=== PATIENT | female | born 1985 | race Caucasian/White ===

== ENCOUNTER 2018-10-04 03:40 | Emergency (ER) | payer OTHER ==
[~2018-10-04] VITALS: Ht 157.5 cm; Wt 83.9 kg
[2018-10-04 04:05] VITALS: BP_SYST 125
[2018-10-04 05:36] LABS: BASOPHILS % (AUTO) 0.5 % (0.0-2.0); EOSINOPHILS # (AUTO) 0.1 K/uL (0.0-0.4); EOSINOPHILS % (AUTO) 1.4 % (0.0-4.0); HEMATOCRIT 37.7 % (36-48); LYMPHOCYTES # (AUTO) 1.7 K/uL (1.0-5.5); MEAN CORPUSCULAR HEMOGLOBIN 29 pg (27-31); MEAN CORPUSCULAR HGB CONC 32 % (32-36); MEAN CORPUSCULAR VOLUME 92 fL (79.0-98.0); MONOCYTES # (AUTO) 0.4 K/uL (0.0-1.0); MONOCYTES % (AUTO) 6.7 % (1.7-9.3); NEUTROPHILS # (AUTO) 4.4 K/uL (1.8-7.7); NEUTROPHILS % (AUTO) 65.4 % (40.0-70.0); PLATELET COUNT (AUTO) 261 K/uL (130-430); RED BLOOD CELL COUNT(AUTO) 4.12 MIL/uL (4.2-6.2); RED CELL DISTRIBUTION WIDTH 12.3 % (9.0-15.0); WHITE BLOOD COUNT (AUTO) 6.6 K/uL (4.8-10.8)
[2018-10-04 05:38] LABS: CALCIUM 8.4 mg/dL (8.4-11.0); CREATININE 0.76 mg/dL (0.55-1.30); POTASSIUM 3.4 mmol/L (3.5-5.1)
[2018-10-04 05:42] LABS: PROTHROMBIN TIME 10.1 SECS (9.5-12.5)
[2018-10-04 05:43] LABS: ALBUMIN 3.3 g/dL (3.4-4.8); TOTAL BILIRUBIN 0.5 mg/dL (0.0-1.0)
[2018-10-04 06:04] LABS: BILIRUBIN,URINE NEGATIVE (NEGATIVE); BLOOD, URINE 3+ (NEGATIVE); CLARITY/URINE SL HAZY (CLEAR); COLOR,URINE YELLOW (YELLOW); GLUCOSE,URINE NEGATIVE (NEGATIVE); KETONES,URINE NEGATIVE (NEGATIVE); LEUKOCYTE ESTERASE ,URINE 1+ (NEGATIVE); NITRITE, URINE POSITIVE (NEGATIVE); PROTEIN URINE NEGATIVE (NEGATIVE)
[2018-10-04 06:15] LABS: BACTERIA,URINE MODERATE /HPF (None Seen); MUCUS,URINE 1+ /LPF (None Seen)
[2018-10-04] MEDS ORDERED: cefTRIAXone 1 GM IVPB PREMIX 50 ML IV ONE (06:30)
[2018-10-04] MEDS ORDERED: NACL 0.9% 1,000 ML IV ONE (06:30)
[2018-10-04 08:30] VITALS: BP_SYST 104
== END 2018-10-04 08:26 | disposition home or self-care (01) ==
LOC: SED 03:40
DX: N39.0 Urinary tract infection, site not specified (principal)
CPT/HCPCS: 36415; 76856; 80053; 81000; 81025; 83605; 83690; 85025; 85610; 87040; 87086; 87186; 96365; 99284; J0696; J7030

== ENCOUNTER 2019-07-17 11:25 | Day surgery (SDC) | payer OTHER ==
[2019-07-15 10:03] LABS: HCG,QUAL RESULT NEGATIVE (NEGATIVE)
[~2019-07-17] VITALS: Ht 157.5 cm; Wt 83.9 kg
[~2019-07-17 11:25] MED LIST: CEFAZOLIN 2 GM IVPB PREMIX 50 ML IV ONE
[2019-07-17] MEDS ORDERED: NS 1000 ML IV.SOLN IV ONE (14:00)
[2019-07-17] MEDS ORDERED: BUPIVACAINE /EPINEPHRINE/PF 0.5% 30 ML VIAL INJ ONE (14:00)
[2019-07-17] MEDS ORDERED: PROPOFOL 200MG/ 20ML VIAL (DIPRIVAN) IV ONE (14:00)
[2019-07-17] MEDS ORDERED: ROCURONIUM BROMIDE 10 MG/ML (ZEMURON) IV ONE (14:00)
[2019-07-17] MEDS ORDERED: fentaNYL CITRATE 250 MCG/5 ML AMP IV ONE (14:00)
[2019-07-17] MEDS ORDERED: SUGAMMADEX SODIUM 200 MG/2 ML VIAL IV ONE (14:00)
[2019-07-17] MEDS ORDERED: ONDANSETRON HCL 4 MG/2 ML VIAL IVP ONE (14:00)
[2019-07-17] MEDS ORDERED: DEXAMETHASONE SOD PHOSPHATE 4 MG/ML VIAL IVP ONE (14:00)
[2019-07-17] MEDS ORDERED: SEVOFLURANE 15 MIN GAS INH ONE (14:00)
[2019-07-17] MEDS ORDERED: LR 1,000 ML IV.SOLN IV ONE (14:00)
[2019-07-17] MEDS ORDERED: NS IRRIG SOLN 1000 ML IR ONE (14:00)
[2019-07-17] MEDS ORDERED: MIDAZOLAM HCL 5 MG/5 ML VIAL IVP ONE (14:00)
[2019-07-17] MEDS ORDERED: LR 1,000 ML IV SCH (14:40)
[2019-07-17] MEDS ORDERED: METOCLOPRAMIDE HCL 10 MG/2 ML VIAL IVP PRN (14:45)
[2019-07-17] MEDS ORDERED: MORPHINE 4 MG/ML INJ. SYRINGE IVP PRN ×3 (14:45)
[2019-07-17] MEDS ORDERED: HYDROcodone/ACETAMIN 5-325 MG TAB (NORCO/ VICODIN) PO PRN ×2 (15:15)
[2019-07-17 16:45] VITALS: BP_SYST 102
[2019-07-17] MEDS ORDERED: METOCLOPRAMIDE HCL 10 MG/2 ML VIAL IVP SCH (18:00)
== END 2019-07-17 18:00 | disposition home or self-care (01) ==
LOC: SDS 11:25 → SMU 11:25 → SDS 18:00
PROVIDERS: ATTEND Surgery
DX: K80.12 Calculus of gallbladder with acute and chronic cholecystitis without obstruction (principal); K66.0 Peritoneal adhesions (postprocedural) (postinfection); E66.3 Overweight
CPT/HCPCS: 47562; 84703; 88304; C1727; C9399; J0690; J1100; J2250; J2405; J2704; J3010; J3490; J7030; J7120